=== PATIENT | male | born 1985 | race African-American/Black ===

== ENCOUNTER 2021-10-05 07:03 | Emergency (ER) | payer OTHER ==
[~2021-10-05] VITALS: Ht 175.3 cm; Wt 104.3 kg
[2021-10-05] MEDS ORDERED: CYCLOBENZAPRINE5 MG PO (07:47)
[2021-10-05] MEDS ORDERED: IBUPROFEN 400 MG TAB PO ONE (08:00)
== END 2021-10-05 08:05 | disposition home or self-care (01) ==
LOC: FSED 07:41
DX: M79.661 Pain in right lower leg (principal); S86.811A Strain of other muscle(s) and tendon(s) at lower leg level, right leg, initial encounter; X50.1XXA Overexertion from prolonged static or awkward postures, initial encounter; Y92.098 Other place in other non-institutional residence as the place of occurrence of the external cause
CPT/HCPCS: 99283